=== PATIENT | female | born 1980 | race Caucasian/White ===

== ENCOUNTER 2017-08-19 16:55 | Inpatient (IN) | payer MEDICAID ==
--- NOTE | 2017-08-19 18:02 | EDPHY ---
H & P Stated Complaint: HTN/TINGLING IN BILAT HANDS SAW PCCP RX LYRICA/MRI SCHEDULED FOR NEXT WEEK Time Seen by Provider: 08/19/17 17:56 HPI/ROS: CHIEF COMPLAINT: Tingling in fingers and toes, dyspnea, leg swelling, anxiety, elevated BGL and BP HISTORY OF PRESENT ILLNESS: The patient is a 37 y/o female who presents with multiple complaints. Over the past couple of weeks, she's had gradually increasing generalized weakness and dizziness. She has twin 14 month olds and no longer can carry them because she is concerned that she will drop them. When she climbs a flight of stairs, she feels very fatigued and needs to walk very slowly. She is normally a very energetic person, but finds herself sitting in a chair most of the day because she feels so fatigued. She also has tingling in her extremities, which is often painful, associated with dry and cracked skin of her digits and toes. She saw her PCP, who prescribed Lyrica for the paresthesias with some relief. Her PCP ordered a brain MRI for further evaluation of paresthesias and this is scheduled for next week. She has been monitoring her BGL due to concerns it was high following her 14 months ago and has measured it in the 130s for the last couple weeks. She has also measured her BP for a few days and found it high in the 140 systolic range , which is unusual for her. She also describes some dizziness upon standing, intermittent nausea, and an improving rash on her abdomen. She has noticeable leg swelling in the mornings that improves through the day. She mentions crying all day yesterday with no obvious reason, but denies history of depression or post- depression. She was on thyroid medication during her that she has since stopped. REVIEW OF SYSTEMS: Constitutional: No fever, no chills Eyes: No visual changes ENT: No sore throat Respiratory: No cough, +shortness of breath Cardiac: No chest pain Gastrointestinal: +nausea, no vomiting, no abdominal pain Genitourinary: No hematuria, no dysuria Musculoskeletal: see HPI Skin: see HPI Neurological: see HPI Psychiatric: see HPI - Personal History LMP (Females 10-55): 15-21 Days Ago Current Tetanus/Diphtheria Vaccine: Yes - Medical/Surgical History PMH: Hypothyroidism - treated during only Hx Asthma: No Hx Chronic Respiratory Disease: No Hx Diabetes: No Hx Cardiac Disease: No Hx Renal Disease: No Hx Cirrhosis: No Hx Alcoholism: No Hx HIV/AIDS: No Hx Splenectomy or Spleen Trauma: No Other PMH: PCOS, IVF, breast augmentation 2010, hypothyroid - Social History Smoking Status: Former smoker Additional Social History: . Had twins 14 months ago. Lives in [place]. Quit smoking 10 years ago. PCP: Dr. Ortega - Physical Exam Exam: General Appearance: Alert, no distress Eyes: Pupils equal and round, no conjunctival pallor or injection ENT, Mouth: Mucous membranes moist Neck: Normal inspection Respiratory: Lungs are clear to auscultation Cardiovascular: Regular rate and rhythm. 2/6 systolic murmur Gastrointestinal: Abdomen is soft and non-tender Neurological: A&O, nonfocal, normal gait Skin: Warm and dry, dry and cracked skin of all digits, faint rough rash over midabdomen. Extremities: no calf swelling, no pedal edema Psychiatric: anxious, normal mood Constitutional: Initial Vital Signs Temperature (C) 37 C 08/19/17 17:00 Heart Rate 96 08/19/17 17:00 Respiratory Rate 18 08/19/17 17:00 Blood Pressure 152/101 H 08/19/17 17:00 O2 Sat (%) 97 08/19/17 17:00 O2 Delivery Mode Room Air Allergies/Adverse Reactions: No Known Allergies Allergy (Verified 08/19/17 21:07) Home Medications: Medication Instructions Recorded Amitriptyline HCl [Elavil 25 mg 25 mg PO HS 08/20/17 (RX)] Medical Decision Making - Diagnostics EKG Interpretation: EKG interpreted by me reveals normal sinus rhythm, rate 95, right axis deviation , low voltage throughout, poor R-wave progression. Imaging Results: Chest X-Ray 08/19/17 18:13 Impression: No acute abnormality, or substantial change from 06/06/2016. Chest/Thorax CTA 08/19/17 19:41 Impression: 1. No pulmonary embolism to the segmental level. 2. Reflux of contrast into the hepatic IVC and hepatic veins, suggest elevated right heart pressures. 3. Trace pericardial effusion. 4. Small subsolid nodules in the right upper lobe, likely infectious and/or inflammatory. Per Fleischner Society 2017 guidelines, recommend follow-up CT in 3-[address] Artis discussed these findings by telephone with KATELYNN CASTILLO on 2017 at 2022 hours. Imaging: I viewed and interpreted images myself ED Course/Re-evaluation: This is a previously healthy 37 y/o female who presents with a constellation of symptoms over the last few weeks including generalized fatigue, SOB, paresthesias, leg swelling, orthostatis dizziness, elevated BP, elevated BGL. On exam, she has a 2/6 systolic murmur (which she did not know about), dry and cracked skin over her digits, and a faint, rough rash over her midabdomen. No leg swelling noted. She is hypertensive at 152/101, will obs BP for now. Concern for cardiomyopathy, with new murmur and SOB. stat EKG reveals NSR, low voltage throughout, ?pericardial effusion. stat ECHO ordered. CXR reveals normal heart size, normal pulmonary vasculature. BNP elevated at 2260. D-dimer elevated at 4.4. Chest CTA ordered to r/o PE. Preliminary informal echo read shows RV dilation, severe decrease in right heart fxn and tricuspid regurgitation. Formal read by restaurant inspector pending. Patient is complaining of heartburn and requesting Tums. Maalox ordered. HgbA1c is elevated at 6.5, estimated average glucose is 140. CTA is negative for PE. 2029: Consulted with Dr. Lew, cardiology. ECHO c/w congenital Ebstein anomaly , right heart failure. Suggests admission for further cardiac evaluation. He requests no diuretics for now. He will consult during admission. 2052: Consulted with hospitalist service. Dr. Avina accepts admission. Patient has remained hemodynamically stable with a normal SpO2 throughout contact in the ED. Dr. Ascencio saw the patient in the emergency department. Dr Ascencio requests IV normal saline 500 mL bolus followed by 100 mL/hour. Pt informed of all test results, need for admission. She and her agree with the plan. This pt utilized 40 minutes of critical care time exclusive of unbundled procedures. Time spent in direct contact with the patient, obtaining history, physical exam, reassessments and explanation of test results. Time spent in ddx consideration, ordering and interpreting tests, consultations. Differential Diagnosis: Differential diagnosis includes though it is not limited to CHF, pneumonia, pneumothorax, pulmonary embolism, aortic dissection, pericarditis, pericardial tamponade, acute coronary syndrome. - Data Points Laboratory Results: Laboratory Results 08/19/17 18:40 08/19/17 18:40 Medications Given: Acetaminophen (Tylenol) 650 mg PO Q4HRS PRN PRN Reason: Pain, Mild/Fever, Can Take PO Stop: 02/15/18 21:55 Last Admin: 08/20/17 07:56 Dose: 650 mg Furosemide (Lasix) 40 mg PO DAILY RICCI Stop: 02/17/18 10:14 Last Admin: 08/22/17 08:38 Dose: 40 mg Lorazepam (Ativan) 0.5 - 1 mg PO Q8HRS PRN PRN Reason: Anxiety, Able to Take PO Stop: 02/15/18 21:55 Last Admin: 08/22/17 16:47 Dose: 1 mg Discontinued Medications Al Hydroxide/Mg Hydroxide (Maalox Susp) 30 ml PO ONCE ONE Stop: 08/19/17 20:01 Last Admin: 08/19/17 20:16 Dose: 30 ml Enoxaparin Sodium (Lovenox) 40 mg SC ONCE ONE Stop: 08/19/17 22:03 Last Admin: 08/19/17 22:55 Dose: 40 mg Sodium Chloride (Ns) 500 mls @ 1,000 mls/hr IV EDNOW ONE PRN Reason: Protocol Stop: 08/19/17 22:01 Last Admin: 08/19/17 21:42 Dose: 500 mls Sodium Chloride (Ns) 1,000 mls @ 100 mls/hr IV ONCE ONE PRN Reason: Protocol Stop: 08/20/17 07:31 Last Admin: 08/19/17 22:54 Dose: 1,000 mls Sodium Chloride (Ns) 1,000 mls @ 0 mls/hr IV ONCALL ONE PRN Reason: TKO Stop: 08/20/17 08:16 Last Admin: 08/20/17 19:37 Dose: Not Given Lorazepam (Ativan Injection) 1 - 2 mg IVP ONCE ONE Stop: 08/21/17 12:48 Last Admin: 08/21/17 13:38 Dose: 1 mg Departure - Departure Disposition: [facility] Clinical Impression: Tingling in extremities, Ebstein anomaly Tricuspid regurgitation Qualifiers: Cardiac valve disease etiology: etiology unspecified Qualified Code(s): I07.1 - Rheumatic tricuspid insufficiency Right heart failure Qualifiers: Heart failure chronicity: acute Qualified Code(s): I50.811 - Acute right heart failure Condition: Fair Report Scribed for: Katelynn Castillo Report Scribed by: Jennifer Leonard Date of Report: 08/19/17 Time of Report: 18:16 Physician Review and Approval Statement: 08/19/17 18:16 Portions of this note were transcribed by a spanish medical interpreter. I personally performed a history, physical exam, medical decision making, and confirmed accuracy of information the transcribed note.
--- NOTE | 2017-08-19 18:39 | CPEKG ---
Heart Rate: 95 RR Interval: 632 P-R Interval: 172 QRSD Interval: 78 QT Interval: 348 QTC Interval: 438 P [place]: 42 QRS [place]: 138 T Wave [place]: 42 EKG Severity - ABNORMAL ECG - EKG Impression: SINUS RHYTHM EKG Impression: RIGHT AXIS DEVIATION EKG Impression: LOW VOLTAGE THROUGHOUT EKG Impression: ABNORMAL Q SUGGESTS ANTERIOR INFARCT Electronically Signed By: Katelynn Castillo 19-Aug-2017 20:50:03
[2017-08-19 19:06] LABS: PLATELET COUNT 193 10^3/uL (150-400)
[2017-08-19] MEDS ORDERED: IOPAMIDOL (ISOVUE 370) 100 ML BTL IV ONE (19:47)
[2017-08-19] MEDS ORDERED: MAG HYDROX/AL HYDROX/SIMETH 30 ML UDCUP PO ONE (20:00)
--- NOTE | 2017-08-19 21:09 | ECHO ---
[email or web address] [address] [address] Main: [phone] Fax: Transthoracic Echocardiogram Name: ANNA FAUST MR#: [id number] Study Date: 08/19/2017 Study Time: 07:26 PM Date of : 1980 Age: 37 year(s) Height: 172.7 cm (68 in.) Weight: 77.11 kg (170 lb.) BSA: 1.91 m2 Gender: Female Examination: Echo Indication: Chest Pain Image Quality: Adequate Contrast: Requested by: Katelynn Castillo BP: 147 mmHg/111 mmHg Heart Rate: Rhythm: Tachycardia Indication: Chest Pain Procedure Staff Mop Maker: Nupur Amador [facility] Reading Physician: Dakota Lew MD Requesting Provider: Conclusions: Normal global systolic LV function. EF is 66 %. No regional wall motion abnormality. Severely dilated right ventricle. Moderately reduced RV function. Flattened interventricular septum consistent with right ventricular pressure and/or volume overload septum. The right atrium is moderately dilated. There is mild thickening of the mitral valve leaflets. Trivial mitral valve regurgitation. The tricuspid valve leaflets are thickend. Small pericardial effusion. Severe tricuspid regurgitation is present. Right ventricular systolic pressure measures 37mmHg. The estimated RVSP may be underestimated due to pressure equalization with wide open TR.. Apically displaced tricuspid leaflets that do not coapt consistent with Ebstein's anomaly Measurements: Chambers Valvular Assessment AV/MV Valvular Assessment TV/PV Normal Normal Normal Name Value Range Name Value Range Name Value Range Ao Courtney (MM): 2.6 cm (2.2 cm-3.7 AV Vmax: 1.26 m/s (1 m/s-1.7 TR Vmax: 2.61 mm/s ( - ) cm) m/s) TR PGmax: 27 mmHg ( - ) IVSd (2D): 0.8 cm (0.6 cm-1.1 AV maxP mmHg ( - ) syst. PAP: 37 mmHg ( - ) cm) LVOT Vmax: 0.99 m/s (0.7 m/s-1.1 PV Vmax: 1.04 m/s (0.6 m/s-0.9 LVDd (2D): 3.9 cm (3.9 cm-5.3 m/s) m/s) cm) MV E Vmax: 0.47 m/s ( - ) PV PGmax: 4 mmHg ( - ) LVDs (2D): 2.5 cm (2.1 cm-4 MV A Vmax: 0.51 m/s ( - ) cm) MV E/A: 0.92 ( - ) LVPWd (2D): 0.8 cm ( - ) Patient: ANNA FAUST Study Date: 08/19/2017 Page 1 of 2 07:26 PM LVEF (2D): 66 (>=54 %) RVDd(2D): 4.6 cm (1.9 cm-3.8 cmmm) Continued Measurements: Chambers Valvular Assessment AV/MV Valvular Assessment TV/PV Name Value Name Value Name Value LADs Lon.0 cm MV DecTime: 211 m/s CVP (est.): 10 mmHg LA Area: 15.2 cm2 Additional Vessels Name Value Ao Ascendin.8 cm Findings: Left Ventricle: Normal size left ventricle. No LV hypertrophy. Normal global systolic LV function. EF is 66 %. No regional wall motion abnormality. Normal diastolic LV function. Right Ventricle: Severely dilated right ventricle. Moderately reduced RV function. Flattened interventricular septum consistent with right ventricular pressure and/or volume overload septum. Left Atrium: The left atrium is normal in size. Right Atrium: The right atrium is moderately dilated. Mitral Valve: The mitral valve is normal in appearance and function. There is mild thickening of the mitral valve leaflets. Trivial mitral valve regurgitation. No mitral stenosis is present. Aortic Valve: The aortic valve is tri-leaflet and functions normally. There is no aortic valve regurgitation. No aortic valve stenosis is present. Tricuspid Valve: The tricuspid valve leaflets are thickend. Severe tricuspid regurgitation is present. Right ventricular systolic pressure measures 37mmHg. The estimated RVSP may be underestimated due to pressure equalization with wide open TR.. apically displaced and do not appear to co-apt. this is consistent with Ebstein's anomaly.. Pulmonic Valve: The pulmonic valve is normal in appearance and function. There is no pulmonic regurgitation seen. Aorta: The aorta is normal. Normal size aortic root measuring 2.6 cm. Normal size ascending aorta measuring 2.8 cm. Pericardium: Small pericardial effusion. (No Signature Object) Patient: ANNA FAUST Study Date: 08/19/2017 Page 2 of 2 07:26 PM [id number]
[2017-08-19] MEDS ORDERED: NS 500 ML IV ONE (21:32)
[2017-08-19] MEDS ORDERED: NS 1,000 ML IV ONE (21:32)
[2017-08-19] MEDS ORDERED: ONDANSETRON 4 MG/2 ML VIAL IVP PRN (21:56)
[2017-08-19] MEDS ORDERED: ONDANSETRON DISINTEGRATING 4 MG TAB PO PRN (21:56)
[2017-08-19] MEDS ORDERED: ACETAMINOPHEN 325 MG TAB PO PRN (21:56)
[2017-08-19] MEDS ORDERED: ENOXAPARIN 40 MG/0.4 ML SYR SC ONE (22:02)
--- NOTE | 2017-08-19 22:40 | GHP ---
[f rep st] HISTORY AND PHYSICAL DATE OF ADMISSION: 08/19/2017 CHIEF COMPLAINT: Shortness of breath and weakness. HISTORY OF PRESENT ILLNESS: This is a 37-year-old female with limited past medical history, who pres ents after giving to two [id number] twins who sound to be quite successful in the home. The patient had noted progressive weakness and shortness of breath over the course of the last several we eks. The patient reports to the emergency department fear carrying her babies because she is so weak she thinks she is going to drop them. Additionally, has noted even at elevation which she is quite use to, shortness of breath that is so severe she has to stop while walking up stairs in her home to catch her breath. The patient additionally notes intermittent swelling of her lower extremities, typ ically at the end of the day, but has noted recently she can wake with swelling, feels more bloated i n her abdomen, reports intermittently loose stools, non diarrhea, nonbloody. Reports some dysuria an d a suspicion that she has a urinary tract infection but denies any hematuria. Denies any cough. Re ports intermittent palpitations. PAST MEDICAL HISTORY: of her twins 14 months ago. SOCIAL HISTORY: Negative for tobacco. Occasional alcohol. No illicit drugs or marijuana. FAMILY HISTORY: Negative for any heart disease. REVIEW OF SYSTEMS: A 10-point review of systems is negative with the exception of that reported in t he HPI. PHYSICAL EXAMINATION: VITAL SIGNS: Blood pressure 129/96, heart rate 100, respiratory rate 20, 95% on room air, 36.4. GENERAL: This is a young female lying flat in bed. HEENT: Notable for dry muco us membranes. EYE: Negative for any icterus. CARDIAC: Patient is tachycardic but regular. I do h ear systolic murmur. PULMONARY: Patient is clear to auscultation bilaterally. GASTROINTESTINAL: P ositive bowel sounds. Abdomen is soft and nontender. MUSCULOSKELETAL: The patient has no lower ext remity edema. SKIN: Negative for any rashes. NEUROLOGIC: She is alert and oriented x3. PSYCHIATR IC: She appears anxious on my interview and examination. DATA: White count 6.9, hematocrit 49.6, platelets of 193. Troponin less than 0.012. BNP of 2260. Beta HCG is negative. D-dimer is 4.4. TSH is normal. EKG, which I personally reviewed and interpre paty, shows sinus rhythm, normal access. Low voltage across the precordium. No acute ST-T changes. CTA of the chest, which I personally reviewed and interpreted, shows no pulmonary embolism. Radiolog y comments on reflux of contrast into the IVC suggestive of elevated right heart pressures. ASSESSMENT AND PLAN: This is a 37-year-old female, recently delivered [id number]-jeo twins, presenting with progressive shortness of breath and fatigue. 1. Joe tricuspid anomaly. Discussed with Cardiology based on the echocardiogram in the emergenc y department. It does appear that the patient has these low-lying tricuspid leaflets with regurgitat ion. We will admit the patient for telemetry monitoring and observation overnight, make the patient n.p.o. after midnight with planned transesophageal echocardiogram in the morning per Cardiology. The patient is not to be diuresed overnight or given additional fluids, simply allowed to eat until midn ight and then made n.p.o. for EZ. 2. Elevated BNP. Suspect related to the anomaly seen on echo, elevated right-sided pressures. Amos mauricio, will await more detailed imaging and consultation with the heart failure commercial airline pilot before initi ating medication plan. 3. Anxiety. Patient is feeling very nervous about being in the hospital. Will write for p.ramanda stark to help with symptoms overnight. 4. Dysuria. Will order a urinalysis to evaluate for possible urinary tract infection. 5. Prophylaxis with Lovenox. Will hold in the morning for EZ. 6. Diet. Cardiac, then n.p.o. after midnight. DISPOSITION: I expect greater than 2 midnights as the patient requires additional diagnostic workup and consultation with Cardiology for affective therapeutic plan. Discussed the case with Dr. Sonu ramos om Cardiology. They will follow tomorrow with transesophageal echo and further recommendations relat ed to the patient's tricuspid anomaly. /[id number]/MODL
[2017-08-19] MEDS: LORazepam 0.5 MG TAB PO PRN (22:59)
[2017-08-20] MEDS ORDERED: HYDROmorphONE/DILAUDID 2 MG/ML INJ IVP PRN (05:20)
[2017-08-20] MEDS ORDERED: NS 1,000 ML IV ONE (08:15)
[2017-08-20] MEDS ORDERED: ENOXAPARIN 40 MG/0.4 ML SYR SC SCH (09:00)
--- NOTE | 2017-08-20 09:33 | GCON ---
[f rep st] CONSULTATION CHIEF COMPLAINT: Shortness of breath. HISTORY: This is a 37-year-old female with limited past medical history other than giving to 1 4-month-old twins by . The patient has noted progressive weakness and shortness of breath o daniel the past few weeks. The shortness of breath is more exertional than at rest. However, when she is at home in [place], even walking up the stairs she has to wait to catch her breath and feels out of breath and sometimes even at rest she feels out of breath. She has noticed intermittent swelling of the lower extremities typically at the end of the day, but recently she started waking up with so me swelling of the legs. She feels bloating of the abdomen and intermittent loose stools are noted, nonbloody stools noted. Some dysuria. She has not been able to eat and drink well. She does not fe el like it. Complains of intermittent palpitations. PAST MEDICAL HISTORY: of twins 14 months ago. SOCIAL HISTORY: Negative for tobacco. Occasional alcohol use. No illicit drug abuse or marijuana. FAMILY HISTORY: Negative for any heart disease. REVIEW OF SYSTEMS: Other than above, negative. PHYSICAL EXAM: VITAL SIGNS: Blood pressure 130/90, pulse of 100, respiratory rate 20. GENERAL: Yo alyssa female lying flat in bed. Does not appear short of breath at current point in time. HEENT: Not able for dry mucous membranes. Eyes negative for any icterus. No pallor. CHEST: Good air entry bi laterally, equal. No rales, rhonchi, rub. HEART: S1, S2. Regular. Systolic ejection murmur in th e tricuspid area noted. ABDOMEN: Soft, nontender. No guarding or rigidity. Bowel sounds present. EXTREMITIES: No edema noted currently. SKIN: No rashes. NEUROLOGIC: grossly intact. PSYCHIATRI C: Appears anxious but oriented x3. LABORATORY STUDIES: Hematocrit of 49.6. TSH is normal. EKG shows sinus rhythm with low voltage across the precordium with poor R-wave progression. CT of the chest negative for pulmonary embolism. BNP is elevated. IMPRESSION: 1. Echocardiogram concerning for Joe's anomaly. This is a 37-year-old female with only medical history of 14 months back who presents with shortness of breath and fatigue. On echocardio gram, it appears like Joe's anomaly. This is a late presentation of Joe's anomaly, and hence the disease may not be as severe. I did not see any gbvil-fk-bzkr shunting; however, further determ ination can be made with a transesophageal echocardiogram. This will also help us figure out further about the details of her Joe's anomaly. 2. Elevated BNP. We will treat her gently with diuresis. 3. Intermittent palpitations. I do not see WPW, which is known to correlate with 20% of these patie nts with Joe's anomaly. However, atrial tachycardia is also a possibility, and we will keep her on a Holter monitor to further evaluate this. Thank you for letting us participate in the patient's care. /[id number]/MODL
--- NOTE | 2017-08-20 11:23 | PDMN ---
Medical Necessity Medical necessity: Pt meets IP criteria per MD; est los >2 mn for eval/tx of progressive shortness of breath, fatigue & elevated BNP possibly r/t Joe tricuspid abnormality; admit for further workup/monitoring & Cardiology consult ; hx recent C section/ of twins; per H&P & order 08/19/17
--- NOTE | 2017-08-20 12:45 | ECHO ---
[email or web address] [address] [address] Main: [phone] Fax: Transthoracic Echocardiogram Name: ANNA FAUST MR#: [id number] Study Date: 08/20/2017 Study Time: 10:35 AM Date of : 1980 Age: 37 year(s) Height: 172.7 cm (68 in.) Weight: 74.84 kg (165 lb.) BSA: 1.88 m2 Gender: Female Examination: Limited Echo Indication: Limited follow up echo to re-evaluate the tricuspid valve. Image Quality: Adequate Contrast: Requested by: Rossy Avina BP: / Heart Rate: Rhythm: Indication: Limited follow up echo to re-evaluate the tricuspid valve. Procedure Staff Byproducts Supervisor: Nupur Amador [facility] Reading Physician: Janes Salgado MD Requesting Provider: Conclusions: Moderately dilated right ventricle. Mildly reduced RV function. Heavy trabeculation in the right ventricle. . Severe tricuspid regurgitation is present. Right ventricular systolic pressure measures 29mmHg. The septal leaflet is apically displaced and shortened consistent with Ebstein's anomaly.. No tricuspid stenosis present. The RVSP may be understimated due to wide open TR. The tricuspid valve almost has a quad leaflet appearance. Measurements: Chambers Valvular Assessment AV/MV Valvular Assessment TV/PV Normal Normal Normal Name Value Range Name Value Range Name Value Range TV Vmax: 0.76 m/s (0.3 m/s-0.7 m/s) TV Vmean: 0.57 m/s ( - ) TV PGmax: 2 mmHg ( - ) TV PGmean: 1 mmHg ( - ) TV VTI: 19.40 cm ( - ) TR Vmax: 2.18 mm/s ( - ) TR PGmax: 19 mmHg ( - ) syst. PAP: 29 mmHg ( - ) Continued Measurements: Valvular Assessment TV/PV Name Value Patient: ANNA FAUST Study Date: 08/20/2017 Page 1 of 2 10:35 AM CVP (est.): 10 mmHg Findings: Right Ventricle: Moderately dilated right ventricle. Mildly reduced RV function. Heavy trabeculation in the right ventricle. . Tricuspid Valve: Severe tricuspid regurgitation is present. Right ventricular systolic pressure measures 29mmHg. The septal leaflet is apically displaced and shortened consistent with Ebstein's anomaly.. No tricuspid stenosis present. The RVSP may be understimated due to wide open TR. Pericardium: Small pericardial effusion. (No Signature Object) Patient: ANNA FAUST Study Date: 08/20/2017 Page 2 of 2 10:35 AM [id number]
--- NOTE | 2017-08-20 13:02 | HOSPPROG ---
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 They are considering EZ vs other imaging currently npo Diuretics per Cards D/w nursing team, CM, pharmacist during bedside rounds Subjective: no chest pain or SOB. no N/V Objective: Vital Signs Temp Pulse Resp BP Pulse Ox 36.8 C 102 H 17 132/102 H 95 08/20/17 07:36 08/20/17 07:36 08/20/17 07:36 08/20/17 07:36 08/20/17 07:36 Laboratory Results 08/20/17 03:45 08/19/17 08/20/17 08/21/17 05:59 05:59 05:59 Intake Total 800 Output Total 0 Balance 800 - Physical Exam Constitutional: no apparent distress, appears nourished Eyes: PERRL, EOMI Ears, Nose, Mouth, Throat: moist mucous membranes, hearing normal Cardiovascular: regular rate and rhythym Respiratory: no respiratory distress Gastrointestinal: normoactive bowel sounds Genitourinary: no bladder fullness Skin: warm Neurologic: AAOx3 Psychiatric: interacting appropriately, not anxious, not encephalopathic, thought process linear Lymph, Heme, Immunologic: No petechiae ICD10 Worksheet Patient Problems: Problems Problem Status Onset Dyspnea Acute Elevated brain natriuretic peptide (BNP) level Acute Elevated hemoglobin A1c Acute Systolic murmur Acute Tingling in extremities Acute Tricuspid regurgitation Acute Mild pre-eclampsia in third trimester Acute Twin delivery by Acute
--- NOTE | 2017-08-20 14:21 | ASMTCASEMG ---
Living Arrangements What is your living Answers: With Spouse arrangement? Who do you live with? Type Of Residence What kind of residence do Answers: House you live in? Discharge Plan Comments Coordination Status Comments Notes: Pt is a 37 y/o female admitted for dyspnea and elevated bnp. Pt will most likely d/c without any needs. No therapies ordered at this time. Wound care has been consulted. CM available for changes. Plan: Independent Date Signed: 08/20/2017 02:20 PM Electronically Signed By:MERT Wakefield
--- NOTE | 2017-08-20 15:12 | WOCRNPDOC ---
WOCRN Advanced Assessment Note - Skin Integrity Problem, Advanced Assess Bilateral Foot Dressing Type: Open to Air Exudate Amount: None Exudate Characteristic(s): None Integumentary Issue Intervention: Lotion/Cream Applied (Atrac-tain) Gena Wound Tissue: Painful/Tender Skin Integrity Problem Comment: Wound care consulted regarding dry fissures on patient's bilateral feet. There are several fissured areas along the heels and the metatarsal, w/ the deepest and most painful fissure located at the base of patient's L great toe. There is no fluctuance or erythema in the surrounding tissue, and I could not express any exudate from the fissure. This does not appear to be fungal, as there is no desquamation of the skin or c/o itching. Uncertain of etiology. Recommend tx w/ Atrac-tain cream to help rapidly exfoliate the skin. Patient did mention that her has had a similar "rash " on his hands; query environmental factors, such as well water on their property. Wound care does not need to follow ongoing.
[2017-08-20] MEDS ORDERED: GADOBUTROL 10 ML VIAL IVP ONE (17:23)
[2017-08-20] MEDS: LORazepam 0.5 MG TAB PO PRN ×2 (17:28→18:45)
--- NOTE | 2017-08-21 09:43 | PDCARPN ---
Cardiology Progress Note Assessment/Plan: Assessment: 1. Ebstein's anomaly 2. Mild right ventricular failure Plan: 1. Start low-dose diuretics 2. Re-attempt MRI with Ativan given 1 hr prior to procedure 3. Have discussed with Dr. Matthew Gresham from CT surgery, he will come and visit with the patient. Have told the patient that while surgery is indicated in the near future it is not emergent and she can take time in making the decision. Prior to surgery will need left and right heart catheterization. 08/21/17 09:43 Subjective: Predominant complaints and reason for hospitalization include shortness of breath, fatigue, tingling in hands and fingers . These symptoms continue. Reviewed/Discussed With: other (The patient's RN) Time Spent With Patient: 30 min Objective: Vital Signs (8 Hrs) Temp Pulse Resp BP Pulse Ox 08/21/17 04:28 36.9 C 84 16 126/92 H 96 Intake/Output (24 Hrs) 08/19/17 08/20/17 08/21/17 11:59 11:59 11:59 Intake Total 800 880 Output Total 0 Balance 800 880 Intake: Oral (ml) 300 880 IV Infused (ml) 500 Output: Urine (ml) 0 Other: Weight 74.8 kg Intake Quantity Yes Yes Sufficient Number of Voids Toilet 1 2 Result Diagrams: 08/19/17 18:40 08/20/17 03:45 Cardiac Labs: Cardiac Lab Results (72 Hrs) 08/20/17 03:45 Troponin I < 0.012 Telemetry: Sinus rhythm, low-voltage QRS - Physical Exam Constitutional: WDWN Eyes: PERRL, EOMI Cardiovascular: regular rate and rhythm, systolic murmur Respiratory: clear to auscultate bilat Gastrointestinal: normoactive bowel sounds, no tenderness Psychiatric: cooperative, interactive, following commands, anxious ICD10 Worksheet Patient Problems: Problems Problem Status Onset Mild pre-eclampsia in third trimester Acute Twin delivery by Acute Dyspnea Acute Elevated brain natriuretic peptide (BNP) level Acute Elevated hemoglobin A1c Acute Tingling in extremities Acute Systolic murmur Acute Tricuspid regurgitation Acute
[2017-08-21] MEDS: FUROSEMIDE 40 MG TAB PO SCH (10:57)
[2017-08-21] MEDS ORDERED: LORazepam 2 MG/ML INJ IVP ONE (12:47)
[2017-08-21] MEDS ORDERED: GADOBUTROL 10 ML VIAL IVP ONE (13:37)
--- NOTE | 2017-08-21 15:41 | HOSPPROG ---
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, severely dilated right ventricle * cv surgery will see * unable to complete cardiac MRI #Dyspnea * cont diuresis * Neuropathy * ?cause * will check b12, MMA * will have neuro see for initial workup and setting up follow up Subjective: tingling and pain in fingers and toes is what is bothering her the most Objective: Vital Signs Temp Pulse Resp BP Pulse Ox 36.7 C 87 12 119/80 95 08/21/17 11:05 08/21/17 11:05 08/21/17 11:05 08/21/17 11:05 08/21/17 11:05 Laboratory Results 08/20/17 03:45 08/20/17 08/21/17 08/22/17 05:59 05:59 06:59 Intake Total 800 880 Output Total 0 Balance 800 880 - Physical Exam Constitutional: no apparent distress, appears nourished, not in pain Eyes: anicteric sclera, EOMI Ears, Nose, Mouth, Throat: moist mucous membranes, hearing normal Cardiovascular: regular rate and rhythym Respiratory: no respiratory distress Skin: warm Neurologic: AAOx3 Psychiatric: interacting appropriately, not anxious, not encephalopathic, thought process linear ICD10 Worksheet Patient Problems: Problems Problem Status Onset Dyspnea Acute Elevated brain natriuretic peptide (BNP) level Acute Elevated hemoglobin A1c Acute Systolic murmur Acute Tingling in extremities Acute Tricuspid regurgitation Acute Mild pre-eclampsia in third trimester Acute Twin delivery by Acute
[2017-08-21] MEDS: LORazepam 0.5 MG TAB PO PRN (23:02)
[2017-08-22] MEDS: FUROSEMIDE 40 MG TAB PO SCH (08:38)
--- NOTE | 2017-08-22 10:39 | GCON ---
[f rep st] CONSULTATION DATE OF CONSULTATION: 08/22/2017 REFERRING PHYSICIAN: Dr. Lew The patient is seen at the request of Dr. Lew with the patient's permission. IMPRESSION: 1. 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 2. Fifty pound weight loss of uncertain etiology. May represent cardiac cachexia. 3. Anxiety neurosis with panic attacks. 4. Status post recent delivery of twins 14 months prior without complications. RECOMMENDATIONS: This patient should undergo right and left heart catheterization to rule out additi onal shunts as well as pressure measurements. There are obviously other cardiac anomalies that need to be considered including patent ductus, ASD, VSD, Akubb-Hcdhojcnl-Jsaaf, etc. I would also place a 30 day event monitor to try to identify any arrhythmias. In the interim, I would medically treat he r for congestive heart failure with the anticipation of requiring some sort of tricuspid valve proced ure in the next month or so. The patient and her were advised of the same. I advised them t hat we needed additional testing to identify exactly what procedure, besides tricuspid valve repair o r replacement might be necessary. Risks and complications were briefly reviewed. Given the appearan ce of her anterior leaflet on echo, I doubt that repair is a feasible option, particularly given the size of her right ventricle, but we will get additional imaging to delineate that. CHIEF COMPLAINT: Tingling and paresthesias in all 4 extremities with pain, as well as abdominal dist ention, edema, and dyspnea on exertion. HISTORY OF CHIEF COMPLAINT: This is a very pleasant, 37-year-old female, gave 14 months ago to twins, a without complications. Since that time, she lost approximately 100 pounds, 50 of which was attributed to her but is currently 50 pounds below her prepregnancy weight. She has not intentionally dieted. States that she has had anorexia and decreased appetite. More recent ly she began getting tingling in her extremities with abdominal distention and peripheral edema as we ll as heart failure symptoms. She presented to the hospital, was found to have Joe's anomaly wit h severe tricuspid insufficiency and marked enlargement of the right ventricle. No obvious shunts we re identified. She was unable to tolerate MRI due to claustrophobia. MEDICAL HISTORY: Other than deliveries, no significant medical history. SOCIAL HISTORY: She is negative for tobacco. Occasional alcohol. No illicit drugs or marijuana. S he is accompanied by her , who is very cooperative and very attentive. FAMILY HISTORY: Negative for any congenital heart disease. MEDICATIONS: Please see MAR. PHYSICAL EXAMINATION: GENERAL: This is a well-developed, 37-year-old female who is sitting upright in bed, in no apparent distress, accompanied by her , very appropriate and very cooperative. VITAL SIGNS: 120/86, O2 saturation was 96 on room air. HEENT: Normocephalic. TRINITY, EOMI. NECK: Without bruits. HEART: Has a soft murmur across the precordium. PMI is displaced laterally. LUNGS : Diminished. ABDOMEN: Soft, nontender. No obvious ascites. Bowel sounds are active. RECTAL AND GENITAL: Deferred. EXTREMITIES: Have 1+ edema. DATABASE: Echo suggests Joe's with severe insufficiency, marked right atrial and right ventricul ar enlargement. Left-sided structures appear to be grossly normal. The hematocrit was 49, creatinin e 0.6. BNP was 2260. LFTs were not obtained. /[id number]/MODL
--- NOTE | 2017-08-22 10:58 | PDCARPN ---
Cardiology Progress Note Chief Complaint: shortness of breath Assessment/Plan: Assessment: Patient is a 37 y/o female with newly diagnosed Ebstein's Anomaly who presented to [facility] with complaints of progressive dyspnea. Symptoms have been noted more recently (patient is s/p of twins about 14 months ago). No CAD, HTN, HLP , or DM history. Echocardiogram with findings consistent with Ebstein's. Attempts at MRI (cardiac) for better visualization of the patient's cardiovascular morphology have been unsuccessful given issues with claustrophobia. CT surgery saw the patient today, and plans are in motion for surgical intervention to the tricuspid valve. Prior to this, however, the patient is in need of further work up to ensure that other congenital issues are not present (ASD, PFO, VSD, anomalous coronary arteries). Today, the patient is feeling well. No cardiovascular complaints of chest pains or pressure. Breathing is better. Diuretic therapy was started. No PND or orthopnea. No lower extremity swelling has been noted (this had been the case in the outpatient setting). Plan: (1) Attempt at cardiac MRI with sedation is pending (2) Would arrange for patient to have right, left, and cor tomorrow with shunt run (3) Would continue diuresis as at present Subjective: No cardiovascular complaints. Anxiety levels have increased as discussions about findings continue. Reviewed/Discussed With: family, multidisciplinary team Objective: Vital Signs (8 Hrs) Temp Pulse Resp BP Pulse Ox 08/22/17 07:33 36.6 C 83 19 120/86 H 96 08/22/17 04:00 36.6 C 81 16 111/83 H 95 Intake/Output (24 Hrs) 08/21/17 08/22/17 08/23/17 04:59 05:59 05:59 Intake Total Balance Intake: Oral (ml) Other: Intake Quantity Sufficient Number of Voids Toilet Result Diagrams: 08/19/17 18:40 08/22/17 03:45 Cardiac Labs: Cardiac Lab Results (72 Hrs) 08/20/17 03:45 Troponin I < 0.012 Telemetry: normal sinus rhythm with rate of 90 bpm. Echocardiogram: ebstein's anomaly with dilated RV/RA and severe TR noted. - Physical Exam Constitutional: WDWN, healthy appearing, no apparent distress Eyes: PERRL, EOMI Ears, Nose, Mouth, Throat: moist mucous membranes Cardiovascular: regular rate and rhythm, systolic murmur, No jugular vein distention Peripheral Pulses: 2+: dorsalis-pedis (R), dorsalis-pedis (L) Respiratory: clear to auscultate bilat, no crackles Gastrointestinal: normoactive bowel sounds Skin: no edema Musculoskeletal: no muscular tenderness Neurologic: AAOx3, CN II-XII grossly intact Psychiatric: cooperative, interactive, following commands ICD10 Worksheet Patient Problems: Problems Problem Status Onset Dyspnea Acute Elevated brain natriuretic peptide (BNP) level Acute Elevated hemoglobin A1c Acute Systolic murmur Acute Tingling in extremities Acute Tricuspid regurgitation Acute Mild pre-eclampsia in third trimester Acute Twin delivery by Acute
--- NOTE | 2017-08-22 12:43 | HOSPPROG ---
Hospitalist Progress Note Assessment/Plan: #Joe Tricuspid anomaly -TTE c/w Joe findings, severely dilated right ventricle * cv surgery following * right heart cath tomorrow * retry of cardiac MRI with anesthesia before dc #Dyspnea * cont diuresis * Neuropathy * ?cause * will check b12, MMA * will have neuro see for initial workup and setting up follow up * Weight loss * uncertain etiology, * cv surgery may want ct abd/pelvis Subjective: no new complaints Objective: Vital Signs Temp Pulse Resp BP Pulse Ox 37.0 C 108 H 18 113/83 H 96 08/22/17 11:11 08/22/17 11:11 08/22/17 11:11 08/22/17 11:11 08/22/17 11:11 Laboratory Results 08/22/17 03:45 08/21/17 08/22/17 08/23/17 04:59 05:59 05:59 Intake Total Balance - Physical Exam Constitutional: no apparent distress, appears nourished, not in pain Eyes: anicteric sclera, EOMI Ears, Nose, Mouth, Throat: moist mucous membranes, hearing normal Cardiovascular: regular rate and rhythym Respiratory: no respiratory distress Gastrointestinal: normoactive bowel sounds, soft, non-tender abdomen, no palpable masses Skin: warm Neurologic: AAOx3 Psychiatric: interacting appropriately, not anxious, not encephalopathic, thought process linear ICD10 Worksheet Patient Problems: Problems Problem Status Onset Dyspnea Acute Elevated brain natriuretic peptide (BNP) level Acute Elevated hemoglobin A1c Acute Systolic murmur Acute Tingling in extremities Acute Tricuspid regurgitation Acute Mild pre-eclampsia in third trimester Acute Twin delivery by Acute
--- NOTE | 2017-08-22 13:44 | NEUROPROG ---
Assessment: [id number] - Neurology Consult: - CC: Dr. Bijan Alarcon Consulted Neurology for neuropathy. Results placed in EMR for his review. - HPI: Pt admitted to [facility] on 08/19/17 with progressive weakness and SOB of several weeks. TTE found cardiac abnormality so patient admitted. Pt noted to have Joe tricuspid structural cardiac abnormality which will likely require surgery at some point so CT surgery going to see. Pt also noted on 08/21/17 to possibly have neuropathy so neurology consult obtained. I initially saw the patient on 08/22/17. She reported tingling pain in her fingers and toes for weeks. She had no fixed sensory loss, weakness, and denied FHx of neuropathy or SHx of recent alcoholism. Neurologic exam was normal. - PMHx: none - SHx: no tobacco FHx: no heart disease - ROS: Pt denied acute fever, total vision loss, active severe chest pain, respiratory failure, total body severe rash, total bowel/bladder incontinence, psychosis, active seizures, or active bleeding - O: VS reviewed General: Alert Eyes: Fundoscopic exam not able to visualize optic disks CV: Heart RRR, no murmur, no carotid bruit Lungs: Clear to auscultation bilaterally, no rhonchi or rales Neuro: - Mental: . Oriented x person/place/date . concentration appears normal . speech fluency/comprehension normal . memory appears normal . fund of knowledge appear intact - Cranial Nerves: . II: PERRL, VFFTC . III/IV/: EOMI, no nystagmus, normal smooth pursuits, no Ptosis . V: facial sensation intact to LT . VII: face symmetric to eye closure and smile . VIII: hearing intact to conversation . IX/X: uvula raises symmetrically . XI: SCM 5/5 B/L strength . XII: tongue protrudes midline w/nl strength - Motor: . Tone: normal tone in all 4 extremity . Strength: no pronator drift, strength 5/5 throughout (B/L delt, bic, tri, hand chainstitch elastic attacher, hf/he, df/pf) - Reflexes: B/L bic/BR/patella 2/4 - Sensory: all 4 extremity intact to light touch - Coord: efapzh-[id number] wnl, DIPIKA wnl, zbcl-ah-zufw wnl - Gait: deferred - Labs: 08/19/17- CBC Hct 49.6L, H1AC 6.5H, HCG neg, TSH wnl 08/21/17- B12 645 - Rads: 08/19/17- CXR: No acute abnormality, or substantial change from 06/06/2016 (I personally visualized the images on 08/22/17) - Assessment: 1. Joe Tricuspid Cardiac Abnormality: Managed by cardiology - 2. Probable Neuropathy: Pt denied FHx of neuropathy or SHx of recent alcoholism and labs (TSH, B12) unremarkable in August 2017. Elevated H1AC 6.5 on 08/19/17 is likely cause of neuropathy. Will further evaluate with SPEP lab and EMG/NCS of arms to exclude alternative causes of neuropathy. Treatment for diabetic neuropathy is focused on controlling underlying blood sugar and symptomatic therapy. - Plan: - Labs: SPEP - Recommend gabapentin 300 mg qhs for nerve pain in fingers - F/U in outpatient neurology clinic for EMG/NCS of arms after discharge - Neurology will sign off at this time, no further inpatient neurologic w/u needed Objective: Vital Signs Temp Pulse Resp BP Pulse Ox 37.0 C 108 H 18 113/83 H 96 08/22/17 11:11 08/22/17 11:11 08/22/17 11:11 08/22/17 11:11 08/22/17 11:11 Laboratory Results 08/22/17 03:45 08/21/17 08/22/17 08/23/17 04:59 05:59 05:59 Intake Total Balance Allergies/Adverse Reactions: No Known Allergies Allergy (Verified 08/19/17 21:07)
[2017-08-22] MEDS: LORazepam 0.5 MG TAB PO PRN (16:47)
[2017-08-22] MEDS ORDERED: NITROGLYCERIN 0.4 MG BTL SL PRN (18:16)
[2017-08-22] MEDS ORDERED: TEMAZEPAM 15 MG CAP PO PRN (18:16)
[2017-08-22] MEDS: GABAPENTIN 300 MG CAP PO SCH (23:20)
[2017-08-23] MEDS: LORazepam 0.5 MG TAB PO PRN (03:09)
[2017-08-23 04:35] LABS: PLATELET COUNT 295 10^3/uL (150-400)
[2017-08-23 04:40] LABS: INR 1.07 (0.83-1.16); PROTIME(PATIENT) 14.1 SEC (12.0-15.0)
[2017-08-23] MEDS ORDERED: FAMOTIDINE 20 MG TAB PO ONE ×2 (06:00→14:00)
[2017-08-23] MEDS ORDERED: ASPIRIN EC 325 MG TAB PO ONE ×2 (06:00→14:00)
[2017-08-23] MEDS ORDERED: NS 1,000 ML IV ONE (06:00)
[2017-08-23] MEDS ORDERED: DIAZEPAM 5 MG TAB PO ONE ×2 (06:00→14:00)
[2017-08-23] MEDS ORDERED: diphenhydrAMINE 25 MG CAP PO ONE ×2 (06:00→14:00)
--- NOTE | 2017-08-23 08:36 | CPEKG ---
Heart Rate: 84 RR Interval: 714 P-R Interval: 172 QRSD Interval: 84 QT Interval: 384 QTC Interval: 454 P [place]: 44 QRS [place]: 212 T Wave [place]: 56 EKG Severity - BORDERLINE ECG - EKG Impression: SINUS RHYTHM EKG Impression: MARKEDLY POSTERIOR QRS AXIS EKG Impression: LOW VOLTAGE IN FRONTAL LEADS Electronically Signed By: Dakota Lew 23-Aug-2017 17:22:59
--- NOTE | 2017-08-23 10:01 | SOAPPROG ---
[facility] Progress Note Assessment/Plan: Assessment: This is a 37-year-old female admitted with symptoms of exertional dyspnea progressive over the last several months associated with intermittent lower extremity edema. She is 14 months after a . Her echocardiogram indicates probable Ebstein's anomaly with torrential tricuspid regurgitation and mild right ventricular failure. Thus far, her noninvasive testing has not found associated congenital anomalies of the interatrial septum , interventricular septum, right ventricular outflow tract or pulmonary veins. Plan: I would like her to undergo further testing with a transesophageal echo. Additionally, she will have a right and left heart catheterization performed with a full shunt run. After this I think we will have a complete picture of her cardiovascular anatomy and physiology that can help plan a potential corrective cardiovascular surgery. This was discussed with the patient. She is in agreement. I did stress to her that this is not an acute problem that requires immediate corrective surgery during this hospitalization. 08/23/17 10:01 Subjective: The patient was seen and examined the patient was seen and examined and the chart was reviewed. I personally reviewed the echocardiogram and have reviewed with Radiology the available MRI images. At this point, the findings are most consistent with Ebstein's anomaly. There does not appear to be an associated anomaly with the interatrial septum, interventricular septum, pulmonary veins or right ventricular outflow tract. The patient presented with a several month history of exertional dyspnea associated with intermittent lower extremity edema. She additionally had occasions of chest discomfort. She is 14 months from delivering twins. Apparently she had an unremarkable cessation in section. Since being in the hospital she has received diuretic therapy. She has been in sinus rhythm. There have been no associated arrhythmias. Her surface electrocardiogram does not indicate pre excitation. Objective: Vital Signs Temp Pulse Resp BP Pulse Ox 36.8 C 91 17 111/83 H 94 08/23/17 03:58 08/23/17 03:58 08/23/17 03:58 08/23/17 03:58 08/23/17 03:58 Laboratory Results 08/23/17 03:34 08/23/17 03:34 08/22/17 08/23/17 08/24/17 05:59 05:59 05:59 Intake Total 1180 Balance 1180 PT 14.1 SEC (12.0-15.0) 08/23/17 03:34 INR 1.07 (0.83-1.16) 08/23/17 03:34 Physical Exam - Physical Exam General Appearance: WD/WN, no apparent distress Neck: non-tender, full range of motion Respiratory: lungs clear, normal breath sounds, respiratory distress Cardiac/Chest: regular rate, rhythm, JVD, systolic murmur (1/6 holosystolic murmur left sternal border), No edema, No gallop Peripheral Pulses: 2+: carotid (R), carotid (L) Abdomen: normal bowel sounds, non-tender, soft Pelvic Exam: deferred Rectal: deferred Skin: warm/dry Neuro/Psych: alert, oriented x 3 ICD10 Worksheet Patient Problems: Problems Problem Status Onset Ebstein anomaly Acute Right heart failure Acute Tingling in extremities Acute Tricuspid regurgitation Acute Mild pre-eclampsia in third trimester Acute Twin delivery by Acute
--- NOTE | 2017-08-23 10:49 | HOSPPROG ---
Hospitalist Progress Note Assessment/Plan: 37-year-old with Joe anomaly is admitted with shortness of breath and chest pressure. # Joe Tricuspid anomaly * Plans for right heart catheterization * CV surgery following * For ongoing plans per Cardiology # dyspnea, continue to recent # neuropathy unclear etiology. Appreciate Neurology. * Follow-up serologic workup * Outpatient follow up for EMG/NCV * Trial gabapentin 300 mg at night # Depression/Anxiety, intermodal truck driver issues, worsening lately with her health issues. Possibly contributing to her weight loss. * Trial of Zoloft * Will dc amitryptiline * Needs outpatient follow up. # weight loss, ? depression. Subjective: pt new to me and chart reviewed, somewhat tearfull complains of 2 years of depression, breathing and chst pressur is better. Objective: Vital Signs Temp Pulse Resp BP Pulse Ox 36.8 C 91 17 111/83 H 94 08/23/17 03:58 08/23/17 03:58 08/23/17 03:58 08/23/17 03:58 08/23/17 03:58 Laboratory Results 08/23/17 03:34 08/23/17 03:34 08/22/17 08/23/17 08/24/17 05:59 05:59 05:59 Intake Total 1180 Balance 1180 PT 14.1 SEC (12.0-15.0) 08/23/17 03:34 INR 1.07 (0.83-1.16) 08/23/17 03:34 - Physical Exam Constitutional: no apparent distress Eyes: PERRL, anicteric sclera Ears, Nose, Mouth, Throat: moist mucous membranes Cardiovascular: regular rate and rhythym, systolic murmur Respiratory: no respiratory distress, no rales or rhonchi, reduced air movement Gastrointestinal: normoactive bowel sounds Genitourinary: no bladder fullness Skin: warm Musculoskeletal: full muscle strength Neurologic: AAOx3 ICD10 Worksheet Patient Problems: Problems Problem Status Onset Mild pre-eclampsia in third trimester Acute Twin delivery by Acute Tingling in extremities Acute Tricuspid regurgitation Acute Right heart failure Acute Ebstein anomaly Acute
[2017-08-23] MEDS ORDERED: fentaNYL 100 MCG/2 ML INJ ONE ×3 (13:18→13:56)
[2017-08-23] MEDS ORDERED: LIDOCAINE 1% 300 MG/30 ML SDV ONE (13:18)
[2017-08-23] MEDS ORDERED: MIDAZOLAM 2 MG/2 ML VIAL ONE ×3 (13:19→13:56)
[2017-08-23] MEDS ORDERED: HEPARIN 10,000 UNIT/10 ML MDV (1,000 UNIT/ML) ONE (13:19)
[2017-08-23] MEDS ORDERED: VERAPAMIL 5 MG/2 ML VIAL ONE (13:19)
[2017-08-23] MEDS ORDERED: IOPAMIDOL (ISOVUE-370) 150 ML BTL IV ONE (13:19)
--- NOTE | 2017-08-23 13:21 | ASMTLACE ---
JOCELYNN Acuity / Level of Answers: Yes Care: Did the patient have an inpatient admission? Comorbidities - select Answers: Congestive heart failure all that apply Other Notes: epstiens anomally of tricuspid # of Emergency department Answers: 1-2 visits in the last 6 months Social determinants Answers: Mental health diagnosis (anxiety, depression, pers onality disorders, etc.) Score: 10 Date Signed: 08/23/2017 01:20 PM Electronically Signed By:Gracy Escobar RN
--- NOTE | 2017-08-23 13:24 | ASMTCMCOM ---
CM Note CM Note Notes: Chart reviewed. Patient status also discussed in rounds. Patent in need of intervention for tricuspid valve. Futher diagnostics today. [facility] consulted. Needs to be determined. CM to follow. Date Signed: 08/23/2017 01:24 PM Electronically Signed By:Gracy Escobar RN
[2017-08-23] MEDS ORDERED: ATROPINE SULFATE 1 MG/10 ML SYR ONE (13:35)
--- NOTE | 2017-08-23 13:43 | PDPROPOC ---
Sedation Plan of Care Sedation Plan of Care: vital signs stable, mental status noted, patient educated of risks, benefits, alternatives, patient can tolerate sedation ASA Classification: ASA 1 Planned drugs: fentanyl, midazolam Mallampati Score: Class 1 Mallampati Reference Image: Patient passed 3-3-2 rule?: Yes
--- NOTE | 2017-08-23 13:44 | PDHPUP ---
History & Physical Update H&P update statement: This history and physical update is based on an assessment of the patient which was completed after admission or registration (within 24 hours), but prior to the surgery/procedure. H&P update: H&P reviewed & patient examined, no change in patient's condition since H&P completed
[2017-08-23] MEDS ORDERED: ATROPINE SULFATE 1 MG/10 ML SYR IVP PRN (15:26)
--- NOTE | 2017-08-23 15:31 | PDDXCAT ---
Diagnostic Cath Note - . Date: 08/23/17 Environmental Engineering Technician: Celina Indication: other (History of Ebstein's anomaly. Preop for planned surgery. Rule out associated congenital abnormalities.) - Procedure Access: left wrist Procedure: left heart catheterization, coronary angiography, left ventriculogram , right heart catheterization - Materials Left Heart Cath size: 5F Left Heart Cath materials: JL3.5, JR4.0, pigtail Right Heart Cath size: 5F Right Heart Cath materials: PWP catheter - Findings-Left Heart Catheterization LM: Large caliber vessel. Bifurcates into the left anterior descending and circumflex. Angiographically free of disease. LAD: Moderate caliber. Approaches but does not traverse the apex. 2 small diagonal branches. No significant disease identified. LCX: Moderate caliber. Single bifurcating obtuse marginal branch noted. Angiographically free of disease. RCA: Large caliber, dominant vessel. The PDA and a small PL are noted. Angiographically free of disease. EDP: 11 mmHg. LVEF: 65%. Wall motion: Normal. - Findings-Right Heart Catheterization RA: 8 mm Hg associated with a saturation of 62.8%. RV: 27/0/10 mmHg associated with a saturation of 67.5% PA: 25/10/16 mmHg associated with a saturation of 69.6%. AO: 90/65/78 mmHg associated with saturation of 92%. CO: 3.13 liters/minute. CI: 1.65 liters/minute per meter squared. Complications: None. Estimated blood loss: <50ml Closure method: TR Band Assessment: 1. Known Ebstein's anomaly admitted with symptoms of mild congestive heart failure. 2. Normal coronary arteries, ejection fraction and right heart saturation run. 3. Low cardiac output likely related to right heart failure. 4. No identified associated congenital anomalies either on this study, a transesophageal echo, a cardiac MRI or a transthoracic echocardiogram. Plan: The patient will be referred to cardiothoracic surgery regarding potential tricuspid valve repair replacement. Intervention: None. Patient Problems: Problems Problem Status Onset Ebstein anomaly Acute Right heart failure Acute Tingling in extremities Acute Tricuspid regurgitation Acute Mild pre-eclampsia in third trimester Acute Twin delivery by Acute
--- NOTE | 2017-08-23 16:38 | ECHO ---
[email or web address] [address] [address] Main: [phone] Fax: Transesophageal Echocardiography Name: ANNA FAUST MR#: [id number] Study Date: 08/23/2017 Study Time: 01:35 PM Date of : 1980 Age: 37 year(s) Height: ( ) Weight: ( ) BSA: Gender: Female Examination: EZ Indication: Evaluate Ebsteins Anomoly Image Quality: Contrast: Requested by: Daniel Patrick Heart Rate: Rhythm: BP: / Procedure Staff Supervisor Electronics Assembly: Nj Bean RDCS Reading Physician: Daniel Patrick MD Requesting Provider: EZ Exam Details Conclusions: Normal left ventricular size and systolic function. LVEF estimated at 65-70% with normal wall motion. Normal left atrial dimensions. Moderate to severely dilated right ventricle and right atrium. Mildly reduced RV systolic function. Morphologically normal appearing mitral valve. Trivial mitral regurgitation. Trileaflet aortic valve with no identified stenosis or insufficiency. Markedly abnormal tricuspid valve which appears to be apically displace consistent with Ebstein's anomaly. This is associated with a dilated tricuspid annulus. Torrential tricuspid regurgitation. No evidence of a significant atrial septal defect or ventricular septal defect. There is a small patent foramina ovale with a small [id number] shunt noted on agitated saline contrast study. Normal appearing left atrial appendage with no indication of thrombus. Grossly normal pulmonic valve. No evidence of patent ductus arteriosus. 2 of 4 pulmonary veins identified. 4 of 4 pulmonary veins were identified on cardiac MRI. Measurements: Chambers Valvular Assessment AV/MV Valvular Assessment TV/PV Normal Normal Normal Name Value Range Name Value Range Name Value Range Additional Measurements: Findings: Left Ventricle: Normal global systolic LV function. No regional wall motion abnormality. Right Ventricle: Patient: ANNA FAUST Study Date: 08/23/2017 Page 1 of 2 01:35 PM Severely dilated right ventricle. Flattened interventricular septum consistent with right ventricular pressure and/or volume overload free wall. Left Atrium: An agitated saline study was performed and was positive for intracardiac shunting. There is a small PFO. Left Atrial Appendage: No thrombus in left appendage. Right Atrium: The right atrium is severely dilated. Mitral Valve: The mitral valve is normal in appearance. Trivial to mild mitral regurgitation. Aortic Valve: The aortic valve is tri-leaflet and functions normally. Tricuspid Valve: There is apically displaced tricuspid leaflets consistent with Ebsteins Anomoly. There is torrential Tricuspid regurgitation. . Pulmonic Valve: The pulmonic valve is normal in appearance and function. Aorta: The aorta is normal. Pericardium: No pericardial effusion. ASD: No atrial septal defect. PFO: Evidence of a small functional patent foramen ovale. Exam Comments: There is no evidence of a VSD. l1n (No Signature Object) Patient: ANNA FAUST Study Date: 08/23/2017 Page 2 of 2 01:35 PM [id number]
[2017-08-23] MEDS: FUROSEMIDE 40 MG TAB PO SCH (19:27)
[2017-08-23] MEDS: SERTRALINE HCL 25 MG TAB PO SCH (19:28)
[2017-08-23] MEDS: GABAPENTIN 300 MG CAP PO SCH (20:53)
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
[2017-08-24 07:39] VITALS: BP 107/71; PULSE 90; RESP 18; TEMP 98.2; O2SAT 92
[2017-08-24] MEDS: FUROSEMIDE 40 MG TAB PO SCH (08:12)
[2017-08-24] MEDS: SERTRALINE HCL 25 MG TAB PO SCH (08:16)
--- NOTE | 2017-08-24 08:35 | SOAPPROG ---
SOAP Progress Note Assessment/Plan: Assessment: This is a 37-year-old female admitted with symptoms of exertional dyspnea progressive over the last several months associated with intermittent lower extremity edema. She is 14 months after a . Her echocardiogram indicates probable Ebstein's anomaly with torrential tricuspid regurgitation and mild right ventricular failure. Her workup thus far has included a cardiac MRI with reasonable imaging although not a technically perfect study, a transthoracic echocardiogram, a transesophageal echocardiogram and a right left heart catheterization with a full saturation run. This has indicated that she has what is likely isolated Ebstein anomaly. We have not identified any other associated congenital heart abnormalities. Specifically there is no indication of an ASD, VSD, abnormalities of the right ventricular outflow tract, anomalous pulmonary veins or PDA. She does have evidence of a small PFO by agitated saline contrast study with no identified left to right shunt on her heart catheterization. Plan: At this point I think she can be discharged from the hospital. I do think she should go home on a low-dose of Lasix. She does not require any additional medical therapy. I will have her follow up with me in the office in the next 1- 2 weeks. She will be referred to cardiothoracic surgery for consideration of tricuspid valve replacement/repair. 08/24/17 08:33 Subjective: She is doing well today. She has minimal pain at the right radial access site. She has remained in sinus rhythm. She denies significant dyspnea and notes no lower extremity edema. I appreciate the input from [facility]. Objective: Vital Signs Temp Pulse Resp BP Pulse Ox 36.8 C 90 18 107/71 92 08/24/17 07:31 08/24/17 07:31 08/24/17 07:31 08/24/17 07:31 08/24/17 07:31 Laboratory Results 08/23/17 03:34 08/23/17 03:34 08/23/17 08/24/17 08/25/17 05:59 05:59 05:59 Intake Total 1180 300 Balance 1180 300 PT 14.1 SEC (12.0-15.0) 08/23/17 03:34 INR 1.07 (0.83-1.16) 08/23/17 03:34 Physical Exam - Physical Exam General Appearance: WD/WN, no apparent distress Neck: non-tender, full range of motion Respiratory: lungs clear Cardiac/Chest: regular rate, rhythm, systolic murmur (1/6 holosystolic murmur left sternal border) Peripheral Pulses: 2+: carotid (R), carotid (L) Abdomen: non-tender, soft Pelvic Exam: deferred Rectal: deferred Extremities: other (Right radial access site with minimal ecchymoses; normal capillary refill) ICD10 Worksheet Patient Problems: Problems Problem Status Onset Mild pre-eclampsia in third trimester Acute Twin delivery by Acute Tingling in extremities Acute Tricuspid regurgitation Acute Right heart failure Acute Ebstein anomaly Acute
--- NOTE | 2017-08-24 11:05 | GDS ---
[f rep st] DISCHARGE SUMMARY DIAGNOSES: 1. Probable Ebstein's anomaly with torrential tricuspid regurgitation and mild right ventricular pa lure. 2. Weakness. 3. Anxiety/depression. 4. Neuropathy of unclear etiology. PROCEDURES DONE: 1. Echocardiogram: Severe tricuspid regurgitation with right ventricular systolic pressure of 37, s everely dilated right ventricle and moderately reduced RV function, atypically displaced tricuspid re flux consistent with Ebstein's anomaly. 2. Chest and thoracic angiogram: No PE. Reflux of contrast into hepatic IVC suggests elevated righ t heart pressures. Small subsolid nodules in the right upper lobe, likely infectious and/or inflamma tory. Recommend CT followup in 6 months. 3. Cardiac MRI. 4. Left and right heart catheterization: No significant coronary artery disease. LVEF 65%. Normal wall motion. Please see report for right heart catheterization findings. 5. EZ. CONSULTATIONS: Include Cardiology, Cardiothoracic Surgery, Neurology, and Psychiatry. HOSPITAL COURSE: The patient is a 37-year-old with a fairly benign past medical history, who comes i n with increasing weakness and shortness of breath. Initial echocardiogram revealed elevated right-sided heart pressures and torrential TR. Followup CT scan did not correspond to pulmonary embolic disease, but possible Ebstein's anomaly. She had the rest of her evaluation done, and at this time her findings are most consistent with proba ble Ebstein's anomaly and will need further evaluation as an outpatient and possible surgery. She was treated with diuresis and did well overall. Regarding her other medical issues, she does have fairly significant anxiety and this was addressed b ivette Quijano from Psychiatry. They did start her on low-dose sertraline, although the patient is rel uctant to start it. The most important thing moving forward is she needs a consistent outpatient phy sician who will follow her up for this anxiety issue. She will have ongoing followup with Kiesha vazquez for her heart issues. CONDITION ON DISCHARGE: Good. Vital signs are stable. She is alert and oriented, and up and walkin g, and feels much better. DISCHARGE MEDICATIONS: Please see discharge medication form. FOLLOWUP INSTRUCTIONS: Follow up with Dr. Pastor Patrick for her heart. Followup with Dr. Chandana keating or her neuropathy. Workup negative in the hospital. May need nerve conduction velocities as an outp atient. Followup with primary care provider for her anxiety. Further discussions as an outpatient w ill include management of the Ebstein's anomaly possibly with surgery. Total time spent with patient on day of discharge and coordination of care is 35 minutes. /[id number]/MODL
--- NOTE | 2017-08-24 14:24 | ASDISCHSUM ---
Discharge Information Plan Status:Home with No Needs Medically Cleared to Leave:08/24/2017 Discharge Date:08/24/2017 12:38 PM CM D/C Disposition:Home, Routine, Self-Care ADT D/C Disposition:Home, Routine, Self-Care Projected Discharge Date:08/24/2017 12:38 PM Transportation at D/C:Family Discharge Delay Reason: Follow-Up Date:08/24/2017 12:38 PM Discharge Slot: Final Diagnosis: Placement Information Patient Contact Information Contact Name:DON Relationship: Address:[address] Work Phone: City:[place] [facility] Phone: State/Zip Code:[place] [address] Email: Financial Information Financial Class:Medicaid Primary Plan Desc:[place] Primary Plan Number:[id number] Secondary Plan Desc: Secondary Plan Number: Assessment Information [facility] Initial CM Assessment Living Arrangements What is your living Answers: With Spouse arrangement? Who do you live with? Type Of Residence What kind of residence do Answers: House you live in? Discharge Plan Comments Coordination Status Comments Notes: Pt is a 37 y/o female admitted for dyspnea and elevated bnp. Pt will most likely d/c without any needs. No therapies ordered at this time. Wound care has been consulted. CM available for changes. Plan: Independent Date Signed: 08/20/2017 02:20 PM Electronically Signed By:MERT Wakefield LACE LACE Acuity / Level of Answers: Yes Care: Did the patient have an inpatient admission? Comorbidities - select Answers: Congestive heart failure all that apply Other Notes: epstiebeckie falconly of tricuspid # of Emergency department Answers: 1-2 visits in the last 6 months Social determinants Answers: Mental health diagnosis (anxiety, depression, pers onality disorders, etc.) Score: 10 Date Signed: 08/23/2017 01:20 PM Electronically Signed By:Gracy Escobar RN [facility] CM Progress Note CM Note CM Note Notes: Chart reviewed. Patient status also discussed in rounds. Patent in need of intervention for tricuspid valve. Futher diagnostics today. [facility] consulted. Needs to be determined. CM to follow. Date Signed: 08/23/2017 01:24 PM Electronically Signed By:Gracy Escobar RN Case Management Discharge Plan Note Case Management Discharge Discharge Order Complete? Answers: Yes Patient to Obtain Answers: Independently Medications Transportation Arranged Answers: Family/Friends Discharge Comments Notes: 08/24/2017 Case Management Note Pt to d/c independently with family support. Left [facility] Lupe Obregon, [facility] escrow representative at [phone] so pt can connect to outpatient Medicaid Services if needed. Provided info for [facility] to patient. Pt to follow up as directed. There are no further case management d/c needs. Date Signed: 08/24/2017 10:05 AM Electronically Signed By:Ivelisse Daley RN Intervention Information
== END 2017-08-24 12:38 | disposition home or self-care (01) | DRG 287 ==
LOC: OBSVTOIN 20:55 → F2W 22:02
PROVIDERS: ADMIT Hospitalist; ATTEND Internal Medicine
PROC: B2111ZZ Fluoroscopy of Multiple Coronary Arteries using Low Osmolar Contrast (ICD-10-PCS; principal; 2017-08-23)
PROC: B246ZZ4 Ultrasonography of Right and Left Heart, Transesophageal (ICD-10-PCS; principal; 2017-08-23)
PROC: 4A023N8 Measurement of Cardiac Sampling and Pressure, Bilateral, Percutaneous Approach (ICD-10-PCS; principal; 2017-08-23)
PROC: B2151ZZ Fluoroscopy of Left Heart using Low Osmolar Contrast (ICD-10-PCS; principal; 2017-08-23)
DX: Q22.5 Ebstein's anomaly (principal); I50.811 Acute right heart failure; R53.81 Other malaise; F41.9 Anxiety disorder, unspecified; F32.9 Major depressive disorder, single episode, unspecified; G62.9 Polyneuropathy, unspecified
CPT/HCPCS: 82607-90; 83921-90; A9585; C1769; J0461; J1200; J1644; J1650; J2060; J2250; J3010; Q9967

== ENCOUNTER 2017-09-15 22:59 | Emergency (ER) | payer MEDICAID ==
[2017-09-15 23:05] VITALS: TEMP 98.2
--- NOTE | 2017-09-15 23:11 | EDPHY ---
General - History Smoking Status: Former smoker Time Seen by Provider: 09/15/17 23:07 Narrative: CHIEF COMPLAINT: Chest pain HISTORY OF PRESENT ILLNESS: Patient complains of chest pain. This started around 1:00 p.m.. It is described as a pressure type pain and pleuritic in nature. It has been constant throughout the day but has improved throughout the day. No worse with exertion. Does not radiate. Some shortness of breath. No diaphoresis. No vomiting. No trauma or injury. Patient has a cardiac history with known tricuspid regurgitation. She was admitted to this facility and discharged on August 24 with diagnoses of this and with mention of possible need of surgical intervention. She has a pending 2nd opinion electric frying pan repairer visit on October 14. She has no history of venous thrombolic event. No lower extremity erythema edema or pain. She missed her dose of Lasix yesterday morning but took it today. She skipped 2 days of her sertraline but has resumed it. No other associated complaints or modifying factors. REVIEW OF SYSTEMS: Ten systems reviewed and are negative unless otherwise noted in the HPI PCP: Waiting to establish with Dr. Rudd SPECIALISTS: Psychiatry [facility] PAST MEDICAL HISTORY: Anxiety, tricuspid regurgitation, PCOS, hypothyroid PAST SURGICAL HISTORY: Breast augmentation SOCIAL HISTORY: Nonsmoker. Lives independently with her significant other in [place] FAMILY HISTORY: Noncontributory EXAMINATION General Appearance: Alert, no distress, fidgeting and anxious Head: normocephalic, atraumatic Eyes: Pupils equal and round, no conjunctival pallor or injection ENT, Mouth: Mucous membranes moist Neck: Normal inspection, supple, non-tender. Respiratory: Lungs are clear to auscultation. No wheezing, rhonchi. No crackles at the bases. No retractions or distress. Cardiovascular: Regular rate and rhythm. Diastolic murmur. No JVD appreciated. Gastrointestinal: Abdomen is soft and nontender Back: non-tender, no bony abnormalities Neurological: A&O, nonfocal, normal gait Skin: Warm and dry, no rash. No petechiae. No purpura Extremities: Nontender, no pedal edema Psychiatric: Anxious DIFFERENTIAL DIAGNOSES: Including but not limited to pulmonary edema, pleural effusion, pericardial effusion, tamponade, PE, pneumonia, bronchitis, ACS, esophagitis, reflux MDM: 11:10 p.m. Chest pain that is described in a pleuritic nature and as pressure. She does have a complicated cardiac history with significant tricuspid regurgitation with reported weight gain of 6 lb over the past 24 hr. Her vital signs are within normal limits with mild tachycardia. She is not hypoxemic. She is anxious on top of her chest pain complaint. Her symptoms have improved throughout the day but not resolved. Her EKG is unremarkable. I have ordered cardiac laboratory studies, chest x-ray. I will add a D-dimer as she was recently in the hospital and is mildly tachycardic. 12:00 a.m. Chest x-ray is negative as read by radiologist. I have reviewed this film as well. Her troponin is negative. Her BNP is negative. Her D-dimer is less than 0.27. Her vital signs remained stable with intermittent mild tachycardia. She is not require any supplemental oxygen. I do feel that her troponin is sensitive as her pain is been present for more than 7 hr. I discussed the case with Dr. Woody, and she will evaluate the patient. 12:20 a.m. Patient has been evaluated by Dr. Woody. She agrees that the patient stable for discharge home. The patient does exhibit anxiety, thus we will have mental health visit with her to provide outpatient resources. She is not suicidal. She is in no acute distress and does not present with any acute psychosis. She has ongoing anxiety and does take medication for this, as she has multiple stressors at this time. She is comfortable going home as is her spouse. She has instructions to contact her established electric frying pan repairer and her primary care physician. We discussed ED precautions and she is comfortable this as well. SUPERVISION: Patient was evaluated and examined in conjunction with my secondary supervising physician as documented. We have both examined the patient. (Ankur Aguero) PHYSICIAN DOCUMENTATION: This is a 37-year-old female who has a history of significant tricuspid regurg, currently undergoing cardiac monitoring with event monitor in place, who is also 15 months with twins, who presents with chest pain which is pleuritic. I have examined the patient and agree with the assessment as above, his labs are unremarkable. Her chest x-ray is normal. I suspect this is costochondritis versus anxiety. The patient has asked for resources for mental health and has some difficulty navigating the system because of her Medicaid. She has a follow-up appointment tomorrow with a 2nd opinion at [facility] Cardiology Department. She will be discharged home. The patient was evaluated and managed by the Physician [employer] Justice. My co- signature indicates that I have reviewed this chart and I agree with the findings and plan of care as documented. I am the secondary supervising physician. (Alem Woody) - Diagnostics Imaging Results: Imaging Impressions Chest X-Ray 09/15/17 23:28 Impression: Negative frontal chest radiograph. - Objective Vital Signs: Initial Vital Signs Temperature (C) 36.8 C 09/15/17 23:01 Heart Rate 106 H 09/15/17 23:01 Respiratory Rate 20 09/15/17 23:01 Blood Pressure 114/76 09/15/17 23:01 O2 Sat (%) 98 09/15/17 23:01 O2 Delivery Mode Room Air Allergies/Adverse Reactions: No Known Allergies Allergy (Verified 09/15/17 23:01) Home Medications: Medication Instructions Recorded Furosemide [Lasix 40 MG (*)] 20 mg PO DAILY #30 tab 08/24/17 Gabapentin [Neurontin 300 MG (*)] 300 mg PO HS #30 cap 08/24/17 LORazepam [Ativan (*)] 0.5 - 1 mg PO Q8HRS PRN #10 tab 08/24/17 Sertraline HCl [Zoloft 25mg (*)] 25 mg PO DAILY #30 tab 08/24/17 Laboratory Results: Laboratory Results 09/15/17 23:20 09/15/17 23:20 09/15/17 09/15/17 09/15/17 23:20 23:20 23:20 WBC RBC Hgb Hct MCV MCH MCHC RDW Plt Count MPV Neut % (Auto) Lymph % (Auto) [place] % (Auto) Eos % (Auto) Baso % (Auto) Nucleat RBC Rel Count Absolute Neuts (auto) Absolute Lymphs (auto) Absolute Monos (auto) Absolute Eos (auto) Absolute Basos (auto) Absolute Nucleated RBC Immature Gran % Immature Gran # D-Dimer < 0.27 ug/mLFEU ug/mLFEU (0.00-0.50) Sodium 138 mEq/L mEq/L (135-145) Potassium 3.6 mEq/L mEq/L (3.5-5.2) Chloride 100 mEq/L mEq/L (97-110) Carbon Dioxide 26 mEq/l mEq/l (22-31) Anion Gap 12 mEq/L mEq/L (8-16) BUN 26 mg/dL H mg/dL (7-23) Creatinine 0.9 mg/dL mg/dL (0.6-1.0) Estimated GFR > 60 Glucose 54 mg/dL L mg/dL (70-100) Calcium 9.3 mg/dL mg/dL (8.5-10.4) Troponin I < 0.012 ng/mL ng/mL (0.000-0.034) NT-Pro-B Natriuret Pep 110 pg/mL pg/mL (0-125) Lipase 105 IU/L IU/L (23-300) Beta HCG, Qual NEGATIVE 09/15/17 23:20 WBC 11.76 10^3/uL H 10^3/uL (3.80-9.50) RBC 5.63 10^6/uL H 10^6/uL (4.18-5.33) Hgb 16.4 g/dL H g/dL (12.6-16.3) Hct 49.1 % H % (38.0-47.0) MCV 87.2 fL fL (81.5-99.8) MCH 29.1 pg pg (27.9-34.1) MCHC 33.4 g/dL g/dL (32.4-36.7) RDW 13.7 % % (11.5-15.2) Plt Count 254 10^3/uL 10^3/uL (150-400) MPV 9.8 fL fL (8.7-11.7) Neut % (Auto) 58.8 % % (39.3-74.2) Lymph % (Auto) 32.9 % % (15.0-45.0) [place] % (Auto) 6.0 % % (4.5-13.0) Eos % (Auto) 1.7 % % (0.6-7.6) Baso % (Auto) 0.3 % % (0.3-1.7) Nucleat RBC Rel Count 0.0 % % (0.0-0.2) Absolute Neuts (auto) 6.91 10^3/uL H 10^3/uL (1.70-6.50) Absolute Lymphs (auto) 3.87 10^3/uL H 10^3/uL (1.00-3.00) Absolute Monos (auto) 0.70 10^3/uL 10^3/uL (0.30-0.80) Absolute Eos (auto) 0.20 10^3/uL 10^3/uL (0.03-0.40) Absolute Basos (auto) 0.04 10^3/uL 10^3/uL (0.02-0.10) Absolute Nucleated RBC 0.00 10^3/uL 10^3/uL (0-0.01) Immature Gran % 0.3 % % (0.0-1.1) Immature Gran # 0.04 10^3/uL 10^3/uL (0.00-0.10) D-Dimer Sodium Potassium Chloride Carbon Dioxide Anion Gap BUN Creatinine Estimated GFR Glucose Calcium Troponin I NT-Pro-B Natriuret Pep Lipase Beta HCG, Qual Departure - Departure Disposition: Home, Routine, Self-Care Clinical Impression: Acute chest pain, Anxiety Tricuspid regurgitation Qualifiers: Cardiac valve disease etiology: nonrheumatic Qualified Code(s): I36.1 - Nonrheumatic tricuspid (valve) insufficiency Condition: Good Instructions: Chest Pain (ED), Tricuspid Regurgitation (ED) Additional Instructions: 1. Continue your previous medications 2. Contact your established electric frying pan repairer tomorrow morning for outpatient care 3. ED precautions as discussed Referrals: [facility] [Provider Group] - As per Instructions
--- NOTE | 2017-09-15 23:16 | CPEKG ---
Heart Rate: 94 RR Interval: 638 P-R Interval: 176 QRSD Interval: 90 QT Interval: 368 QTC Interval: 461 P [place]: 55 QRS [place]: 77 T Wave [place]: 47 EKG Severity - NORMAL ECG - EKG Impression: SINUS RHYTHM Electronically Signed By: Alem Woody 16-Sep-2017 07:08:00
[2017-09-15 23:27] LABS: PLATELET COUNT 254 10^3/uL (150-400)
[2017-09-16 01:03] VITALS: BP 115/80; PULSE 83; RESP 18; O2SAT 97
== END 2017-09-16 01:00 | disposition home or self-care (01) ==
DX: I36.1 Nonrheumatic tricuspid (valve) insufficiency (principal); F41.9 Anxiety disorder, unspecified; Z87.891 Personal history of nicotine dependence

== ENCOUNTER → 2017-10-04 | Outpatient (CLI) | payer MEDICAID ==
[~2017-10-04] MED LIST: IOPAMIDOL (ISOVUE-300) 100 ML BTL ONE
== END ==
LOC: FIMAGING 13:21
PROVIDERS: ATTEND Thoracic Surgery (Cardiothoracic Vascular Surgery)
DX: Q22.5 Ebstein's anomaly (principal); K59.00 Constipation, unspecified
CPT/HCPCS: Q9967